=== PATIENT | male | born 1975 | race Caucasian/White ===

== ENCOUNTER 2017-07-18 04:17 | Emergency (ER) | payer MEDICAID ==
[~2017-07-18] VITALS: Ht 180.3 cm; Wt 69.0 kg
[2017-07-18 04:18] VITALS: BP 115/74
[2017-07-18] MEDS ORDERED: LIDOCAINE 1%, 20ML ONE (04:42)
[2017-07-18] MEDS ORDERED: BUPIVACAINE/PF 0.5% ONE (04:42)
[2017-07-18] MEDS ORDERED: LIDOCAINE 1%, 20ML SQ ONE (05:00)
[2017-07-18] MEDS ORDERED: BUPIVACAINE/PF 0.5% INFIL ONE (05:00)
== END 2017-07-18 05:39 | disposition home or self-care (01) ==
LOC: ED 05:18
DX: K02.9 Dental caries, unspecified (principal); F20.9 Schizophrenia, unspecified; Z88.0 Allergy status to penicillin
CPT/HCPCS: 64400

== ENCOUNTER 2017-12-03 07:15 | Emergency (ER) | payer MEDICAID ==
[~2017-12-03] VITALS: Ht 180.3 cm; Wt 66.8 kg
[2017-12-03 07:17] VITALS: BP 133/84
[2017-12-03] MEDS ORDERED: LIDOCAINE 1%, 20ML ONE (07:43)
[2017-12-03] MEDS ORDERED: DIPH,PERTUSS(ACELL),TET VAC/PF 0.5 ML IM-VACC ONE ×2 (07:43→08:00)
[2017-12-03] MEDS ORDERED: LIDOCAINE 1%, 20ML SQ ONE (08:00)
== END 2017-12-03 09:15 | disposition home or self-care (01) ==
LOC: ED 09:04
DX: L02.511 Cutaneous abscess of right hand (principal); F20.9 Schizophrenia, unspecified
CPT/HCPCS: 10060; 82962; 90471; 90715; 99284

== ENCOUNTER 2019-09-15 13:43 | Emergency (ER) | payer MEDICAID ==
[~2019-09-15] VITALS: Ht 180.3 cm; Wt 70.4 kg
--- NOTE | 2019-09-15 16:00 | NUR ---
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
--- NOTE | 2019-09-15 16:51 | NUR ---
PT VOMITED LARGE VOLUME IN SINK. VSS. DR JOHNSON AT BEDSIDE. PT ASSESSMENT REVIEWED, ORDERS REC'D. CALL LIGHT W/I REACH. PT AWARE OF NEED TO PROVIDE URINE SAMPLE. ER MD IS NOT REQUESTING STOOL SAMPLE AT THIS TIME.
[2019-09-15] MEDS ORDERED: ONDANSETRON ODT 4 MG PO ONE (17:00)
[2019-09-15] MEDS ORDERED: ONDANSETRON ODT 4 MG ONE (17:23)
[2019-09-15 17:31] LABS: BASOPHILS # (AUTO) 0.05 x10^3/uL (0-0.1); BASOPHILS % (AUTO) 0 % (0-1); EOSINOPHILS # (AUTO) 0.31 x10^3/uL (0-0.4); EOSINOPHILS % (AUTO) 3 % (1-7); LYMPHOCYTES # (AUTO) 2.48 x10^3/uL (1-3.4); LYMPHOCYTES % (AUTO) 22 % (22-44); MD NO; MEAN CORPUSCULAR HEMOGLOBIN 30.7 pg (27.5-34.5); MEAN CORPUSCULAR HGB CONC 33.8 g/dL (33.2-36.2); MEAN PLATELET VOLUME 8.1 fL (7.4-10.4); MONOCYTES # (AUTO) 0.79 x10^3/uL (0.2-0.8); MONOCYTES % (AUTO) 7 % (2-9); NEUTROPHILS # (AUTO) 7.74 x10^3/uL (1.8-6.8); NEUTROPHILS % (AUTO) 68 % (42-75); PLATELET COUNT 279 x10^3/uL (130-400); RED BLOOD COUNT 4.42 x10^6/uL (4.38-5.82); RED CELL DISTRIBUTION WIDTH 13.9 % (9.4-14.8)
[2019-09-15 17:40] LABS: ALBUMIN 3.6 g/dL (3.4-5.0); ANION GAP 5 mmol/L (5-15); CHLORIDE 107 mmol/L (98-107)
[2019-09-15 17:43] LABS: ALANINE AMINOTRANSFERASE 30 U/L (12-78); ALKALINE PHOSPHATASE 98 U/L (45-117); BILIRUBIN,TOTAL 0.5 mg/dL (0.2-1.0); CREATININE 0.74 mg/dL (0.7-1.3); TOTAL PROTEIN 7.2 g/dL (6.4-8.2)
--- NOTE | 2019-09-15 17:52 | NUR ---
TEST RESULTS DISCUSSED WITH DR TERRY. NEW ORDER REC'D FOR ABD CT. PT AWARE. PT RPTS NAUSEA IS BETTER AFTER OFRAN. PT TO REMAIN NPO UNTIL RESULTS FROM CT ARE REVIEWED. PT VERBALIZES UNDERSTANDING.
[2019-09-15 19:00] VITALS: BP 121/80
--- NOTE | 2019-09-15 19:01 | NUR ---
PT BACK FROM CT.
[2019-09-15] MEDS ORDERED: CIPROFLOXACIN 500 MG TABLET ONE (19:48)
[2019-09-15] MEDS ORDERED: metroNIDAZOLE 500 MG TABLET ONE (19:48)
[2019-09-15] MEDS ORDERED: CIPROFLOXACIN 500 MG TABLET PO ONE (20:00)
[2019-09-15] MEDS ORDERED: metroNIDAZOLE 500 MG TABLET PO ONE (20:00)
--- NOTE | 2019-09-15 20:07 | NUR ---
ALL RESULTS BACK CHART UP FOR RECHECK
== END 2019-09-15 21:04 | disposition home or self-care (01) ==
LOC: ED 17:57
DX: R11.2 Nausea with vomiting, unspecified (principal); R19.7 Diarrhea, unspecified; R10.32 Left lower quadrant pain; F17.200 Nicotine dependence, unspecified, uncomplicated
CPT/HCPCS: 36415; 74021; 74176; 80053; 83690; 85025; 99284; Q0162

== ENCOUNTER 2019-09-21 09:13 | Inpatient (IN) | payer MEDICAID ==
[~2019-09-21] VITALS: Ht 180.3 cm; Wt 62.1 kg
[2019-09-21] MEDS ORDERED: DIPH,PERTUSS(ACELL),TET VAC/PF 0.5 ML IM-VACC ONE ×2 (09:57→10:00)
[2019-09-21] MEDS ORDERED: LIDOCAINE-MPF 1%, 5ML INFIL ONE (10:00)
[2019-09-21] MEDS ORDERED: SODIUM CHLORIDE FLUSH 10ML SYR IVF ONE (10:00)
[2019-09-21] MEDS ORDERED: VANCOMYCIN PER PHARMACY MC ONE (10:00)
--- NOTE | 2019-09-21 10:12 | NUR ---
PT. IS A & O X 4 WITH A GCS OF 15. PT. PRESENTS TO THE ED FOR A RIGHT HAND ABSCESS/CELLULITIS WITH STREAKING UP HIS RIGHT ARM AND ASSOCIATED PAIN IN HIS RIGHT LYMPH NODES. IV ACCESS ESTABLISHED. CMS CHECKS INTACT WITH PULSES +2 THORUGHOUT. PHARMACY NOTIFIED FOR IV VANCO. dT GIVEN. PT. REMAINS NPO.
--- NOTE | 2019-09-21 10:30 | NUR ---
DISCUSSED DRAWING BLOOD CULTURES WITH THE PROVIDER. HE STATES NO BLOOD CULTURES AT THIS TIME. ABX WERE STARTED AFTER THE CONVERSATION.
[2019-09-21 10:35] LABS: MEAN CORPUSCULAR HEMOGLOBIN 30.7 pg (27.5-34.5); MEAN CORPUSCULAR VOLUME 92.9 fL (81-97); MEAN PLATELET VOLUME 7.8 fL (7.4-10.4); PLATELET COUNT 260 x10^3/uL (130-400); RED BLOOD COUNT 4.37 x10^6/uL (4.38-5.82); RED CELL DISTRIBUTION WIDTH 13.4 % (9.4-14.8)
[2019-09-21] MEDS ORDERED: VANCOMYCIN 1,400 MG in SODIUM CHLORIDE 0.9% 250 ML IV ONE (11:00)
[2019-09-21 11:09] LABS: BASOPHILS # (AUTO) 0.03 x10^3/uL (0-0.1); BASOPHILS % (AUTO) 0 % (0-1); EOSINOPHILS # (AUTO) 0.03 x10^3/uL (0-0.4); EOSINOPHILS % (AUTO) 0 % (1-7); LYMPHOCYTES % (AUTO) 9 % (22-44); MD SCAN; MONOCYTES # (AUTO) 1.81 x10^3/uL (0.2-0.8); MONOCYTES % (AUTO) 8 % (2-9); NEUTROPHILS # (AUTO) 19.34 x10^3/uL (1.8-6.8); NEUTROPHILS % (AUTO) 83 % (42-75)
[2019-09-21 11:11] LABS: ALBUMIN 3.5 g/dL (3.4-5.0); ANION GAP 10 mmol/L (5-15); CALCIUM 8.9 mg/dL (8.5-10.1); CHLORIDE 103 mmol/L (98-107)
[2019-09-21 11:14] LABS: CREATININE 0.76 mg/dL (0.7-1.3)
[2019-09-21] MEDS ORDERED: CLINDAMYCIN PMX 600MG/50ML 50 ML IV ONE (11:30)
--- NOTE | 2019-09-21 12:25 | NUR ---
IV ABX CONTINUE TO INFUSE ON THE PUMP. PT. IS RESTING AT THIS TIME.
[2019-09-21] MEDS ORDERED: LIDOCAINE-MPF 1%, 5ML ONE (12:55)
--- NOTE | 2019-09-21 13:20 | NUR ---
PT.'S CMS CHECKS REMAIN INTACT TO HIS RIGHT HAND. WOUNDS ARE DRESSED.
--- NOTE | 2019-09-21 13:20 | NUR ---
PT.'S I AND D WAS COMPLETED. HIS SECOND ANTIBIOTIC IS INFUSING ON THE PUMP. REPORT WAS CALLED. VSS.
[2019-09-21] MEDS ORDERED: ASA/APAP/ CAFFEINE TABLET PO PRN (14:00)
[2019-09-21] MEDS: NICOTINE 21 MG/24 HR PATCH.TD24 TD SCH (14:00)
[2019-09-21] MEDS ORDERED: ONDANSETRON ODT 4 MG PO PRN (14:00)
[2019-09-21] MEDS ORDERED: ONDANSETRON 2MG/ML, 2ML IVPush PRN (14:00)
[2019-09-21] MEDS ORDERED: VANCOMYCIN PER PHARMACY MC PRN (14:00)
[2019-09-21] MEDS ORDERED: TRAZODONE 50MG TABLET PO PRN (14:00)
[2019-09-21] MEDS ORDERED: IBUPROFEN 600 MG TABLET PO PRN (14:00)
[2019-09-21] MEDS ORDERED: hydrALAzine 20 MG/ML, 1ML IVPush PRN (14:00)
[2019-09-21] MEDS ORDERED: PHARMACOKINETIC MONITORING MC PRN (14:00)
[2019-09-21] MEDS ORDERED: KETOROLAC 30 MG/1 ML IV PRN (14:00)
[2019-09-21] MEDS ORDERED: POLYETHYLENE GLYCOL 17 GM PACKET PO PRN (14:00)
[2019-09-21 18:58] VITALS: BP 114/73
[2019-09-21] MEDS: CLINDAMYCIN PMX 600MG/50ML 50 ML IV SCH (20:41)
[2019-09-21] MEDS: VANCOMYCIN 1,400 MG in SODIUM CHLORIDE 0.9% 250 ML IV SCH (23:07)
[2019-09-22 01:34] VITALS: BP 96/60
[2019-09-22] MEDS: CLINDAMYCIN PMX 600MG/50ML 50 ML IV SCH (05:18)
[2019-09-22 06:20] LABS: ANION GAP 6 mmol/L (5-15); CALCIUM 8.4 mg/dL (8.5-10.1); CHLORIDE 106 mmol/L (98-107)
[2019-09-22 06:23] LABS: BASOPHILS # (AUTO) 0.05 x10^3/uL (0-0.1); BASOPHILS % (AUTO) 0 % (0-1); EOSINOPHILS # (AUTO) 0.25 x10^3/uL (0-0.4); EOSINOPHILS % (AUTO) 2 % (1-7); LYMPHOCYTES # (AUTO) 2.28 x10^3/uL (1-3.4); LYMPHOCYTES % (AUTO) 18 % (22-44); MD NO; MEAN CORPUSCULAR HEMOGLOBIN 30.8 pg (27.5-34.5); MEAN CORPUSCULAR HGB CONC 32.8 g/dL (33.2-36.2); MEAN CORPUSCULAR VOLUME 93.9 fL (81-97); MEAN PLATELET VOLUME 8.3 fL (7.4-10.4); MONOCYTES # (AUTO) 1.12 x10^3/uL (0.2-0.8); MONOCYTES % (AUTO) 9 % (2-9); NEUTROPHILS # (AUTO) 8.79 x10^3/uL (1.8-6.8); NEUTROPHILS % (AUTO) 70 % (42-75); PLATELET COUNT 258 x10^3/uL (130-400); RED CELL DISTRIBUTION WIDTH 13.7 % (9.4-14.8)
[2019-09-22] MEDS: AMPICILLIN/SULBACTAM 3 GM in SODIUM CHLORIDE 0.9% 100 ML IV SCH ×2 (07:00→07:41)
[2019-09-22 07:24] VITALS: BP 98/62
[2019-09-22] MEDS: ACETAMINOPHEN 325 MG TABLET PO PRN ×2 (07:42→16:29)
[2019-09-22] MEDS ORDERED: DIPHENHYDRAMINE 25 MG CAPSULE PO PRN (08:00)
[2019-09-22 09:08] LABS: HCT (SEDRATE) 41.4 % (39.2-51.8)
[2019-09-22] MEDS: CEFTRIAXONE PMX 2GM/50ML 50 ML IV SCH (10:07)
[2019-09-22] MEDS: VANCOMYCIN 1,400 MG in SODIUM CHLORIDE 0.9% 250 ML IV SCH ×2 (11:29→23:08)
[2019-09-22 12:21] LABS: INTERNATIONAL NORMALIZED RATIO 0.97 (0.93-1.1); PROTHROMBIN TIME 10.2 Seconds (9.6-11.5)
[2019-09-22] MEDS: NICOTINE 21 MG/24 HR PATCH.TD24 TD SCH (14:00)
[2019-09-22 14:03] VITALS: BP 102/59
[2019-09-22] MEDS ORDERED: GADOTERATE 10 MMOL/20 ML SYR ONE (15:07)
[2019-09-22 19:06] VITALS: BP 96/61
[2019-09-23 01:10] VITALS: BP 97/59
[2019-09-23 06:16] VITALS: BP 97/62
[2019-09-23 06:18] LABS: BASOPHILS # (AUTO) 0.03 x10^3/uL (0-0.1); BASOPHILS % (AUTO) 0 % (0-1); EOSINOPHILS # (AUTO) 0.46 x10^3/uL (0-0.4); EOSINOPHILS % (AUTO) 5 % (1-7); LYMPHOCYTES # (AUTO) 2.38 x10^3/uL (1-3.4); LYMPHOCYTES % (AUTO) 26 % (22-44); MD NO; MEAN CORPUSCULAR HEMOGLOBIN 30.2 pg (27.5-34.5); MEAN CORPUSCULAR HGB CONC 32.5 g/dL (33.2-36.2); MEAN CORPUSCULAR VOLUME 92.9 fL (81-97); MEAN PLATELET VOLUME 8.1 fL (7.4-10.4); MONOCYTES % (AUTO) 9 % (2-9); NEUTROPHILS # (AUTO) 5.56 x10^3/uL (1.8-6.8); NEUTROPHILS % (AUTO) 60 % (42-75); PLATELET COUNT 291 x10^3/uL (130-400); RED BLOOD COUNT 4.37 x10^6/uL (4.38-5.82); RED CELL DISTRIBUTION WIDTH 13.4 % (9.4-14.8)
[2019-09-23 06:20] LABS: CHLORIDE 108 mmol/L (98-107)
[2019-09-23 06:28] LABS: ALANINE AMINOTRANSFERASE 27 U/L (12-78); ALKALINE PHOSPHATASE 93 U/L (45-117); ANION GAP 6 mmol/L (5-15); BILIRUBIN,TOTAL 0.6 mg/dL (0.2-1.0); CALCIUM 8.6 mg/dL (8.5-10.1); CREATININE 0.73 mg/dL (0.7-1.3); TOTAL PROTEIN 6.7 g/dL (6.4-8.2)
[2019-09-23] MEDS: CEFTRIAXONE PMX 2GM/50ML 50 ML IV SCH (10:40)
[2019-09-23] MEDS: VANCOMYCIN 1,400 MG in SODIUM CHLORIDE 0.9% 250 ML IV SCH (11:38)
== END 2019-09-23 13:39 | disposition left against medical advice (07) | DRG 383 ==
LOC: ED 12:41 → EDIP 12:42 → ED 13:06 → 3N 13:51
PROVIDERS: ADMIT Family Medicine; ATTEND Hospitalist
PROC: 0X9J0ZZ Drainage of Right Hand, Open Approach (ICD-10-PCS; principal; 2019-09-21)
DX: L03.113 Cellulitis of right upper limb (principal); F20.9 Schizophrenia, unspecified; F15.90 Other stimulant use, unspecified, uncomplicated; F17.200 Nicotine dependence, unspecified, uncomplicated; F31.9 Bipolar disorder, unspecified; F41.1 Generalized anxiety disorder; L02.413 Cutaneous abscess of right upper limb; L02.511 Cutaneous abscess of right hand; Z59.0 Homelessness; Z53.29 Procedure and treatment not carried out because of patient's decision for other reasons; Z88.0 Allergy status to penicillin
CPT/HCPCS: 10060; 36415; 80048; 80053; 80202; 82040; 83605; 83735; 85025; 85610; 85651; 86140; 87040; 87070; 87147; 87205; 90715; 99285; G0378; J0295; J0696; J3370; A9575; J7050; Q0163

== ENCOUNTER 2020-04-19 06:07 | Emergency (ER) | payer MEDICAID ==
[~2020-04-19] VITALS: Ht 182.9 cm; Wt 65.7 kg
[2020-04-19 06:09] VITALS: BP 92/65
--- NOTE | 2020-04-19 06:25 | NUR ---
FIRST CONTACT WITH PT: PT SITTING UP ON GURNEY, CHANGED INTO GOWN, STATES "I WOKE UP AT THE [facility], AND IMMEDIATELY WALKED OVER HERE BECAUSE MY NOSE HURTS." DENIES TRAUMA OR EPISTAXIS, STATES "I THINK SOMEONE PUT SOMETHING ON IT." PT DENIES CHANGES IN SENSE OF SMELL. VSS. VANESSA PARRA AT FOR EVAL AND POC. PT PLACED ON SPO2/BP MONITOR, GIVEN WARM BLANKETS FOR COMFORT.
--- NOTE | 2020-04-19 06:45 | NUR ---
Patient given discharge instructions and they have confirmed that they understand the instructions. Patient ambulatory with steady gait. DENIES ADDITIONAL QUESTIONS AT THIS TIME, NO BELONGINGS LEFT IN ROOM
== END 2020-04-19 06:47 | disposition home or self-care (01) ==
LOC: ED 06:35
DX: S00.531A Contusion of lip, initial encounter (principal); F17.200 Nicotine dependence, unspecified, uncomplicated; X58.XXXA Exposure to other specified factors, initial encounter; Y93.89 Activity, other specified; Y92.488 Other paved roadways as the place of occurrence of the external cause; Y99.8 Other external cause status
CPT/HCPCS: 99281

== ENCOUNTER 2020-04-24 22:02 | Inpatient (IN) | payer MEDICAID ==
[~2020-04-24] VITALS: Ht 180.3 cm; Wt 68.6 kg
[2020-04-24] MEDS ORDERED: LIDOCAINE-MPF 1%, 5ML INFIL ONE (23:30)
[2020-04-24] MEDS ORDERED: BUPIVACAINE 0.25% INFIL ONE (23:30)
[2020-04-24] MEDS ORDERED: LIDOCAINE-MPF 1%, 5ML ONE (23:55)
[2020-04-24] MEDS ORDERED: BUPIVACAINE 0.25% ONE (23:55)
[2020-04-24 23:57] LABS: BASOPHILS # (AUTO) 0.16 x10^3/uL (0-0.1); BASOPHILS % (AUTO) 1 % (0-1); EOSINOPHILS # (AUTO) 0.39 x10^3/uL (0-0.4); EOSINOPHILS % (AUTO) 2 % (1-7); LYMPHOCYTES # (AUTO) 3.87 x10^3/uL (1-3.4); LYMPHOCYTES % (AUTO) 24 % (22-44); MD NO; MEAN CORPUSCULAR HEMOGLOBIN 29.3 pg (27.5-34.5); MEAN PLATELET VOLUME 7.5 fL (7.4-10.4); MONOCYTES # (AUTO) 1.03 x10^3/uL (0.2-0.8); MONOCYTES % (AUTO) 6 % (2-9); NEUTROPHILS # (AUTO) 10.68 x10^3/uL (1.8-6.8); NEUTROPHILS % (AUTO) 66 % (42-75); PLATELET COUNT 346 x10^3/uL (130-400); RED BLOOD COUNT 4.45 x10^6/uL (4.38-5.82); RED CELL DISTRIBUTION WIDTH 13.1 % (9.4-14.8)
[2020-04-25 00:09] LABS: ALBUMIN 3.1 g/dL (3.4-5.0); ANION GAP 4 mmol/L (5-15); CALCIUM 8.7 mg/dL (8.5-10.1); CHLORIDE 104 mmol/L (98-107); CREATININE 0.89 mg/dL (0.7-1.3)
[2020-04-25] MEDS ORDERED: CLINDAMYCIN PMX 600MG/50ML 50 ML IVPB ONE (00:30)
[2020-04-25] MEDS ORDERED: SODIUM CHLORIDE 0.9% 1,000ML IVBOLUS ONE (00:30)
[2020-04-25] MEDS ORDERED: MORPHINE SULFATE 4 MG/ML, 1ML IV PRN (00:30)
[2020-04-25] MEDS ORDERED: SODIUM CHLORIDE FLUSH 10ML SYR IVF ONE (00:30)
[2020-04-25] MEDS ORDERED: MORPHINE SULFATE 4 MG/ML, 1ML ONE (00:54)
[2020-04-25] MEDS ORDERED: CLINDAMYCIN PMX 600MG/50ML 50 ML ONE (00:54)
--- NOTE | 2020-04-25 01:30 | NUR ---
FINGER NUMBED, I&D OCCURRED. PATIENT TOLERATED POORLY. WOUND CULTURE SENT TO LAB.
--- NOTE | 2020-04-25 02:00 | NUR ---
PATIENT UP TO RESTROOM. AMBULATORY WITHOUT COMPLICATIONS. PATIENT STATED THAT HAND STILL HURTS, CURRENTLY SCREAMING IN PAIN. PATIENT IN RESTROOM USING HAND WITHOUT COMPLICATIONS.
[2020-04-25] MEDS ORDERED: ACETAMINOPHEN 325 MG TABLET PO PRN (02:30)
[2020-04-25] MEDS ORDERED: ONDANSETRON 2MG/ML, 2ML IVPush PRN (02:30)
--- NOTE | 2020-04-25 02:42 | NUR ---
Assist RN: Report given to RIDGE Gary. Patient to be transferred to room 357.
[2020-04-25 02:43] LABS: HCT (SEDRATE) 39.5 % (39.2-51.8)
[2020-04-25] MEDS: SODIUM CHLORIDE 0.9% 1,000 ML IV SCH ×3 (03:52→21:16)
[2020-04-25] MEDS: morphine SULFATE 10 MG/ML, 1ML IVPush PRN ×3 (03:53→15:50)
[2020-04-25] MEDS: CLINDAMYCIN PMX 600MG/50ML 50 ML IV SCH ×4 (06:01→23:53)
[2020-04-25] MEDS: HYDROcodone/APAP 5/325 TABLET PO PRN (09:30)
[2020-04-25 09:53] VITALS: BP 115/70
[2020-04-25 11:32] LABS: AMPHETAMINE SCREEN, URINE Negative (Negative); BARBITURATE SCREEN, URINE Negative (Negative); BENZODIAZEPINE SCREEN, URINE Negative (Negative); CANNABINOID SCREEN, URINE Positive (Negative); COCAINE SCREEN, URINE Negative (Negative); METHADONE SCREEN, URINE Negative (Negative); OPIATE SCREEN, URINE Positive (Negative)
[2020-04-25 13:21] VITALS: BP 103/68
[2020-04-25 21:26] VITALS: BP 102/63
[2020-04-26] VITALS: BP 118/71
[2020-04-26 05:46] LABS: BASOPHILS # (AUTO) 0.03 x10^3/uL (0-0.1); BASOPHILS % (AUTO) 0 % (0-1); EOSINOPHILS # (AUTO) 0.39 x10^3/uL (0-0.4); EOSINOPHILS % (AUTO) 5 % (1-7); LYMPHOCYTES # (AUTO) 3.11 x10^3/uL (1-3.4); LYMPHOCYTES % (AUTO) 37 % (22-44); MD NO; MEAN CORPUSCULAR HEMOGLOBIN 29.1 pg (27.5-34.5); MEAN CORPUSCULAR HGB CONC 32.5 g/dL (33.2-36.2); MEAN PLATELET VOLUME 7.6 fL (7.4-10.4); MONOCYTES # (AUTO) 0.63 x10^3/uL (0.2-0.8); MONOCYTES % (AUTO) 8 % (2-9); NEUTROPHILS # (AUTO) 4.16 x10^3/uL (1.8-6.8); NEUTROPHILS % (AUTO) 50 % (42-75); PLATELET COUNT 323 x10^3/uL (130-400); RED BLOOD COUNT 4.29 x10^6/uL (4.38-5.82); RED CELL DISTRIBUTION WIDTH 13.9 % (9.4-14.8)
[2020-04-26 05:59] LABS: CHLORIDE 107 mmol/L (98-107)
[2020-04-26] MEDS: SODIUM CHLORIDE 0.9% 1,000 ML IV SCH ×2 (06:01→15:00)
[2020-04-26] MEDS: CLINDAMYCIN PMX 600MG/50ML 50 ML IV SCH ×3 (06:02→17:27)
[2020-04-26 06:05] LABS: ANION GAP 5 mmol/L (5-15); CALCIUM 8.6 mg/dL (8.5-10.1); CREATININE 0.59 mg/dL (0.7-1.3)
[2020-04-26 06:50] VITALS: BP 103/65
[2020-04-26] MEDS: morphine SULFATE 10 MG/ML, 1ML IVPush PRN ×2 (12:10→19:46)
[2020-04-26 14:00] VITALS: BP 110/68
[2020-04-26] MEDS: HYDROcodone/APAP 5/325 TABLET PO PRN (17:27)
[2020-04-26 19:23] VITALS: BP 103/64
[2020-04-27] MEDS: CLINDAMYCIN PMX 600MG/50ML 50 ML IV SCH ×2 (00:06→05:47)
[2020-04-27 00:08] VITALS: BP 104/67
[2020-04-27] MEDS: SODIUM CHLORIDE 0.9% 1,000 ML IV SCH (03:33)
[2020-04-27] MEDS: HYDROcodone/APAP 5/325 TABLET PO PRN (03:37)
[2020-04-27 04:42] LABS: BASOPHILS # (AUTO) 0.04 x10^3/uL (0-0.1); BASOPHILS % (AUTO) 1 % (0-1); EOSINOPHILS # (AUTO) 0.55 x10^3/uL (0-0.4); EOSINOPHILS % (AUTO) 7 % (1-7); LYMPHOCYTES # (AUTO) 3.17 x10^3/uL (1-3.4); LYMPHOCYTES % (AUTO) 38 % (22-44); MD NO; MEAN CORPUSCULAR HEMOGLOBIN 29.6 pg (27.5-34.5); MEAN CORPUSCULAR HGB CONC 33.2 g/dL (33.2-36.2); MEAN PLATELET VOLUME 7.6 fL (7.4-10.4); MONOCYTES # (AUTO) 0.76 x10^3/uL (0.2-0.8); MONOCYTES % (AUTO) 9 % (2-9); NEUTROPHILS # (AUTO) 3.76 x10^3/uL (1.8-6.8); NEUTROPHILS % (AUTO) 45 % (42-75); PLATELET COUNT 366 x10^3/uL (130-400); RED BLOOD COUNT 4.22 x10^6/uL (4.38-5.82)
[2020-04-27 04:52] LABS: ANION GAP 2 mmol/L (5-15); CALCIUM 8.6 mg/dL (8.5-10.1); CHLORIDE 108 mmol/L (98-107); CREATININE 0.72 mg/dL (0.7-1.3)
[2020-04-27 06:40] VITALS: BP 101/61
== END 2020-04-27 12:05 | disposition left against medical advice (07) | DRG 720 ==
LOC: ED 04-25 01:28 → EDIP 04-25 03:50 → 3N 04-25 03:51
PROVIDERS: ADMIT Internal Medicine; ATTEND Hospitalist
PROC: 3E0T3BZ Introduction of Anesthetic Agent into Peripheral Nerves and Plexi, Percutaneous Approach (ICD-10-PCS; principal; 2020-04-25)
PROC: 0X9J0ZZ Drainage of Right Hand, Open Approach (ICD-10-PCS; 2020-04-25)
DX: A40.9 Streptococcal sepsis, unspecified (principal); F20.9 Schizophrenia, unspecified; F17.200 Nicotine dependence, unspecified, uncomplicated; F31.9 Bipolar disorder, unspecified; F41.1 Generalized anxiety disorder; L03.011 Cellulitis of right finger; L02.511 Cutaneous abscess of right hand; Z59.0 Homelessness; Z53.29 Procedure and treatment not carried out because of patient's decision for other reasons
CPT/HCPCS: 26011; 36415; 80048; 80307; 82040; 83735; 85025; 85651; 86140; 87070; 87077; 87205; G0378; J2270; J7030

== ENCOUNTER 2020-05-15 05:12 | Emergency (ER) | payer MEDICAID ==
[~2020-05-15] VITALS: Ht 180.3 cm; Wt 66.3 kg
--- NOTE | 2020-05-15 05:32 | NUR ---
C/O LOWER LIP PAIN. SWELLING NOTED.
[2020-05-15] MEDS ORDERED: SULFAMETH./TRIMETHOPRIM DS 800MG/160MG TABLET PO ONE (06:00)
[2020-05-15] MEDS ORDERED: SULFAMETH./TRIMETHOPRIM DS 800MG/160MG TABLET ONE (06:02)
[2020-05-15 06:03] VITALS: BP 103/68
[2020-05-15 06:25] LABS: BASOPHILS # (AUTO) 0.12 x10^3/uL (0-0.1); BASOPHILS % (AUTO) 1 % (0-1); EOSINOPHILS % (AUTO) 2 % (1-7); LYMPHOCYTES # (AUTO) 2.68 x10^3/uL (1-3.4); LYMPHOCYTES % (AUTO) 23 % (22-44); MD NO; MEAN CORPUSCULAR HEMOGLOBIN 29.2 pg (27.5-34.5); MEAN CORPUSCULAR HGB CONC 32.5 g/dL (33.2-36.2); MEAN CORPUSCULAR VOLUME 89.9 fL (81-97); MEAN PLATELET VOLUME 8.1 fL (7.4-10.4); MONOCYTES # (AUTO) 0.97 x10^3/uL (0.2-0.8); MONOCYTES % (AUTO) 8 % (2-9); NEUTROPHILS % (AUTO) 67 % (42-75); PLATELET COUNT 188 x10^3/uL (130-400); RED BLOOD COUNT 4.23 x10^6/uL (4.38-5.82)
--- NOTE | 2020-05-15 06:48 | NUR ---
REPORT GIVEN TO BRYANT SABILLON.
--- NOTE | 2020-05-15 06:55 | NUR ---
I am assuming care of this pt from karuna (taylor) at this time. sbar report was exchanged at the bedside.
[2020-05-15] MEDS ORDERED: ACYCLOVIR 400 MG TABLET PO ONE (07:30)
[2020-05-15] MEDS ORDERED: ACYCLOVIR 200 MG CAPSULE PO ONE (07:30)
== END 2020-05-15 07:55 | disposition home or self-care (01) ==
LOC: ED 05:48
DX: K13.0 Diseases of lips (principal); F17.290 Nicotine dependence, other tobacco product, uncomplicated; Z59.0 Homelessness
CPT/HCPCS: 36415; 85025; 99283

== ENCOUNTER 2020-05-24 09:50 | Emergency (ER) | payer MEDICAID ==
[~2020-05-24] VITALS: Ht 180.3 cm; Wt 66.5 kg
[2020-05-24 09:53] VITALS: BP 93/58
--- NOTE | 2020-05-24 10:03 | NUR ---
MARCOS SENIOR AT BS NOW.
--- NOTE | 2020-05-24 10:06 | NUR ---
WHEN ER PA LEAVES ROOM, PT ASKS, "CAN I GET AN IV FOR A FEW HOURS? I JUST FEEL SO WEAK AND LIKE MY BLOOD IS SO THIN." DIET TRAY ORDERED, WATER PROVIDED.
[2020-05-24] MEDS ORDERED: SULFAMETH./TRIMETHOPRIM DS 800MG/160MG TABLET ONE (10:12)
--- NOTE | 2020-05-24 10:25 | NUR ---
MEAL TRAY PROVIDED TO PT.
[2020-05-24] MEDS ORDERED: SULFAMETH./TRIMETHOPRIM DS 800MG/160MG TABLET PO ONE (10:30)
--- NOTE | 2020-05-24 10:46 | NUR ---
TASK RN: Patient/Caregiver given discharge instructions and they have confirmed that they understand the instructions. Patient ambulatory with steady gait. CARE CHEST INFORMATION PROVIDED
== END 2020-05-24 10:46 | disposition home or self-care (01) ==
LOC: ED 10:27
DX: L03.211 Cellulitis of face (principal); B00.1 Herpesviral vesicular dermatitis; F17.210 Nicotine dependence, cigarettes, uncomplicated
CPT/HCPCS: 99283

== ENCOUNTER 2020-06-05 18:31 | Emergency (ER) | payer MEDICAID ==
[~2020-06-05] VITALS: Ht 180.3 cm; Wt 66.0 kg
[2020-06-05 18:34] VITALS: BP 113/74
== END 2020-06-05 19:13 | disposition home or self-care (01) ==
LOC: ED 19:09
DX: L55.0 Sunburn of first degree (principal); L98.8 Other specified disorders of the skin and subcutaneous tissue
CPT/HCPCS: 99283

== ENCOUNTER 2020-06-06 03:26 | Emergency (ER) | payer MEDICAID ==
[~2020-06-06] VITALS: Ht 180.3 cm; Wt 67.1 kg
[2020-06-06 03:30] VITALS: BP 105/79
--- NOTE | 2020-06-06 03:46 | NUR ---
PT SCREAMING DOWN HALLWAY, THRASHING IN BED AND BEING VERBALLY ABUSIVE TO STAFF. SECURITY PAGED TO ESCORT PT OUT.
== END 2020-06-06 03:49 | disposition left against medical advice (07) ==
LOC: ED 03:40
DX: K13.79 Other lesions of oral mucosa (principal); Z53.21 Procedure and treatment not carried out due to patient leaving prior to being seen by health care provider

== ENCOUNTER 2020-10-17 05:12 | Emergency (ER) | payer MEDICAID ==
[~2020-10-17] VITALS: Ht 180.3 cm; Wt 71.6 kg
--- NOTE | 2020-10-17 05:22 | NUR ---
THIS IS A 45 YO M W/ C/O N/V/D AND GENERAL ABD SINCE YESTERDAY. PT STATES THAT HE THINKS HE HAS FOOD POISIONING. PT RESTING ON [employer] W/ CALL LIGHT IN REACH AND SIDE RAILS UPX2. CONNECTED TO MONITORING, CASSANDRA LE.
[2020-10-17] MEDS ORDERED: DICYCLOMINE 10 MG/ML, 2ML IM ONE (05:30)
[2020-10-17] MEDS ORDERED: SODIUM CHLORIDE 0.9% 1,000ML IVBOLUS ONE (05:30)
[2020-10-17] MEDS ORDERED: SODIUM CHLORIDE FLUSH 10ML SYR IVF ONE (05:30)
[2020-10-17] MEDS ORDERED: FAMOTIDINE 20 MG/2 ML IVPush ONE (05:30)
[2020-10-17] MEDS ORDERED: ONDANSETRON 2MG/ML, 2ML IVPush ONE (05:30)
[2020-10-17] MEDS ORDERED: ONDANSETRON 2MG/ML, 2ML ONE (05:34)
[2020-10-17] MEDS ORDERED: FAMOTIDINE 20 MG/2 ML ONE (05:34)
[2020-10-17 05:42] LABS: MICROSCOPIC NOT IND
--- NOTE | 2020-10-17 05:43 | NUR ---
PIV STARTED, LABS DRAWN. PT MEDICATED PER EMAR.
[2020-10-17 06:01] LABS: ALBUMIN 3.6 g/dL (3.4-5.0); ANION GAP 3 mmol/L (5-15); CALCIUM 9.1 mg/dL (8.5-10.1); CHLORIDE 108 mmol/L (98-107)
[2020-10-17 06:03] LABS: BASOPHILS % (AUTO) 1 % (0-1); EOSINOPHILS % (AUTO) 4 % (1-7); LYMPHOCYTES % (AUTO) 34 % (22-44); MEAN CORPUSCULAR HGB CONC 33.8 g/dL (33.2-36.2); MEAN PLATELET VOLUME 7.6 fL (7.4-10.4); MONOCYTES % (AUTO) 10 % (2-9); NEUTROPHILS % (AUTO) 52 % (42-75); PLATELET COUNT 245 x10^3/uL (130-400); RED BLOOD COUNT 4.63 x10^6/uL (4.38-5.82)
[2020-10-17 06:06] LABS: ALANINE AMINOTRANSFERASE 29 U/L (12-78); ALKALINE PHOSPHATASE 101 U/L (45-117); BILIRUBIN,TOTAL 1.1 mg/dL (0.2-1.0); CREATININE 0.79 mg/dL (0.7-1.3); TOTAL PROTEIN 6.8 g/dL (6.4-8.2)
[2020-10-17] MEDS ORDERED: DICYCLOMINE 10 MG/ML, 2ML ONE (06:19)
[2020-10-17 06:24] LABS: MD NO
--- NOTE | 2020-10-17 06:32 | NUR ---
ALL TESTS RESULTED. PT IS UP FOR RECHECK AT THIS TIME.
[2020-10-17 06:48] VITALS: BP 118/72
--- NOTE | 2020-10-17 06:54 | NUR ---
Patient given discharge instructions and they have confirmed that they understand the instructions. Patient ambulatory with steady gait.
== END 2020-10-17 07:04 | disposition home or self-care (01) ==
LOC: ED 06:41
DX: K52.9 Noninfective gastroenteritis and colitis, unspecified (principal)
CPT/HCPCS: 36415; 80053; 81003; 83690; 85025; 96361; 96372; 96374; 96375; 99284; J0500; J2405; J7030

== ENCOUNTER 2021-04-23 02:56 | Emergency (ER) | payer MEDICAID ==
[~2021-04-23] VITALS: Ht 180.3 cm; Wt 70.8 kg
[2021-04-23 02:58] VITALS: BP 129/77
--- NOTE | 2021-04-23 03:15 | NUR ---
PT PRESENTS TO ER FOR LEFT LOWER JAW/DENTAL PAIN, HAS BEEN FOR 2 DAYS NOW, PTS RIGHT SIDE OF JAW IS SWOLLEN AND PAINFUL, PT ALLERGIC TO PENICILLIN
[2021-04-23] MEDS ORDERED: LIDOCAINE-MPF 1%, 5ML ONE (03:47)
[2021-04-23] MEDS ORDERED: BUPIVACAINE 0.25% ONE (03:47)
[2021-04-23] MEDS ORDERED: BUPIVACAINE 0.25% INFIL ONE (04:00)
[2021-04-23] MEDS ORDERED: LIDOCAINE-MPF 1%, 5ML INFIL ONE (04:00)
--- NOTE | 2021-04-23 05:00 | NUR ---
PARRISH Gallardo performed I&D, pt barely tolerated procedure even with lidocaine, pt kept moving his head, pt opted for ABX treatment
== END 2021-04-23 05:07 | disposition home or self-care (01) ==
LOC: ED 05:06
DX: K04.7 Periapical abscess without sinus (principal); K02.9 Dental caries, unspecified; F17.210 Nicotine dependence, cigarettes, uncomplicated; F10.10 Alcohol abuse, uncomplicated; Y90.0 Blood alcohol level of less than 20 mg/100 ml; F12.10 Cannabis abuse, uncomplicated
CPT/HCPCS: 41800; 64400; 99406

== ENCOUNTER 2021-06-08 13:53 | Emergency (ER) | payer MEDICAID ==
[~2021-06-08] VITALS: Ht 180.3 cm; Wt 74.0 kg
[2021-06-08 14:07] VITALS: BP 102/61
== END 2021-06-08 14:17 | disposition home or self-care (01) ==
LOC: ED 14:00
DX: K02.9 Dental caries, unspecified (principal); R51.9 Headache, unspecified
CPT/HCPCS: 99283